=== PATIENT | female | born 1935 | race Hispanic/Latino ===

== ENCOUNTER 2018-02-10 16:10 | Outpatient (CLI) | payer MEDICARE | END 2018-02-10 16:11 | disposition home or self-care (01) | LOC: MRI 16:10 | PROVIDERS: ATTEND Specialist | DX: G45.9 Transient cerebral ischemic attack, unspecified (principal); R41.0 Disorientation, unspecified; Z90.710 Acquired absence of both cervix and uterus; Z98.890 Other specified postprocedural states | CPT/HCPCS: 70544; 70547; 70551 ==